=== PATIENT | female | born 1930 | race Caucasian/White ===

== ENCOUNTER 2016-06-24 10:08 | Emergency (ER) | payer OTHER ==
[~2016-06-24] VITALS: Ht 154.9 cm; Wt 70.3 kg
[2016-06-24 11:00] LABS: ABSOLUTE BASOPHIL COUNT 0 /CUMM (0.0-0.2); ABSOLUTE EOSINOPHIL COUNT 0.2 /CUMM (0.0-0.7); ABSOLUTE GRANULOCYTE CT 5.6 /CUMM (1.4-6.5); ABSOLUTE LYMPH COUNT 1.6 /CUMM (1.2-3.4); ABSOLUTE MONOCYTE COUNT 0.5 /CUMM (0.10-0.60); BASOPHIL % 0.6 % (0.0-2.0); EOSINOPHIL % 2.1 % (0-5); GRANULOCYTE % 71.1 % (42.2-75.2); HEMATOCRIT 43.7 % (37-47); MEAN CORPUSCULAR HGB 30.8 PG (27.0-31.0); MEAN CORPUSCULAR HGB CONC 33.9 G/DL (33.0-37.0); MEAN CORPUSCULAR VOLUME 90.7 FL (81.0-99.0); MEAN PLATELET VOLUME 8.4 FL (7.4-10.4); PLATELET COUNT 237 /CUMM (130-400); RBC DISTRIBUTION WIDTH 14.4 % (11.5-14.5); RED BLOOD CELL CT 4.82 /CUMM (4.20-5.40); WHITE BLOOD CELL COUNT 7.8 /CUMM (4.8-10.8)
--- NOTE | 2016-06-24 11:05 | ED SYNCOPE COMPLAINT ---
History of Present Illness General Chief Complaint: General Adult Stated Complaint: BIBA, DIZZINESS Source: patient, old records, EMS Exam Limitations: no limitations Vital Signs & Intake/Output Vital Signs & Intake/Output Vital Signs Date Time Temp Pulse Resp B/P B/P Pulse O2 O2 Flow FiO2 Mean Ox Delivery Rate 06/24 1459 97.8 89 16 139/91 97 Room Air 06/24 1213 77 16 148/81 100 Room Air 06/24 1042 98 Room Air 06/24 1013 97.4 72 20 122/62 96 Room Air Allergies Coded Allergies: NO KNOWN ALLERGIES (08/15/12) Reconcile Medications Aspirin (Aspirin*) 81 MG TAB.CHEW 1 TAB PO MoWeFr HEART HEALTH (Reported) Ferrous Sulfate 325 MG (65 MG IRON) TABLET 1 TAB PO DAILY SUPPLEMENT ( Reported) Triage Note: 86 YO FEMALE PATI FROM HOME. PT STATES SHE WOKE UP THIS AM AND FELT NORMAL, STATES SHE ATE BREAKFAST AND THEN HAD A SUDDEN ONSET OF DIZZINESS. STATES SHE IS NAUSOUS AT THIS TIME. PT STATES IT FEELS LIKE "THE ROOM I SPINNING" PT DENIES CHEST PAIN, SOB, LIGHTHEADED. PT ALERT & ORIENTED X4. Triage Nurses Notes Reviewed? yes Timing: single episode today Loss of Consciousness: no loss of consciousness Associated Symptoms: dizziness, nausea/vomiting HPI: 86-year-old female comes into emergency room for evaluation of dizziness lightheaded and feeling like she is going to pass out. Symptoms aren't shortly after breakfast this morning. She denies any chest pain or shortness of breath. Denies any vomiting but has some associated nausea. Denies any slurring of words. Patient came in by ambulance and lives by herself. Patient reports that she is still feeling dizzy. Denies any other associated symptoms. (YASH PARADA) Past History Travel History Traveled to [place] past 21 day No Medical History Any Pertinent Medical History? 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 No (YASH PARADA) Review of Systems Review of Systems Constitutional: Reports: no symptoms. EENTM: Reports: no symptoms. Respiratory: Reports: no symptoms. Cardiovascular: Reports: see HPI. GI: Reports: no symptoms. Genitourinary: Reports: no symptoms. Musculoskeletal: Reports: no symptoms. Skin: Reports: no symptoms. Neurological/Psychological: Reports: no symptoms. All Other Systems: Reviewed and Negative (YASH PARADA) Physical Exam Physical Exam General Appearance: well developed/nourished, alert, awake Head: atraumatic, normal appearance Eyes: Bilateral: normal appearance, PERRL, EOMI. Ears, Nose, Throat: normal pharynx, normal ENT inspection, hearing grossly normal Neck: normal inspection, full range of motion Respiratory: normal breath sounds, no respiratory distress Cardiovascular: regular rate/rhythm Back: normal inspection Extremities: normal inspection, normal range of motion Psychiatric: awake, alert, oriented x 3 Cranial Nerves: normal hearing, normal speech, PERRL Motor/Sensory: no motor/sensory deficits Skin: intact, normal color Core Measures ACS in differential dx? No CVA/TIA Diagnosis: No Severe Sepsis Present: No Septic Shock Present: No (YASH PARADA) Progress Differential Diagnosis: AMI, aortic dissection, aortic valve, drug induced syncope, hyperventilation, orthostatic syncope, other valvular disease, pacemaker malfunction, pericardial tamponade, pulmonary embolus, seizure, sick sinus syndrome, subarachnoid hem., TIA/CVA, vasodepressor syncope, ventricular tach/fib Diagnostic Imaging: Viewed by Me: Radiology Read. Discussed w/RAD: Radiology Read. Radiology Impression: SERVICE DATE: 06/24/16 EXAM TYPE: RAD - XRY- PORTABLE CHEST XRAY EXAMINATION: XR PORTABLE CHEST CLINICAL INFORMATION: Near syncope COMPARISON: None TECHNIQUE: Portable AP view of the chest was obtained. FINDINGS: Limited by patient rotation and 70 degree upright position. No large airspace consolidation. No pneumothorax. No significant pulmonary edema or pleural effusions. IMPRESSION: Limited exam without obvious acute abnormality. Recommend repeat upright PA and lateral radiograph when the patient is able. DICTATED BY: FABIANO WRIGHT MD DATE/TIME DICTATED:06/24/16 1234 MANAGER INTELLIGENCE:TOMY Initial ED EKG: normal intervals, normal sinus rhythm, rate (71), LBBB Repeat EKG: unchanged Comments: 06/24/2016 2:11:13 PM Upon reevaluating the patient her symptoms have resolved. I spoke with Dr. LOERA. The left bundle branch block is old. Patient will have a second troponin and EKG performed and will be discharged if she remains asymptomatic. (GALEN NOYOLA,YASH) Plan of Care: Orders Procedure Date/time Status Heart Healthy Diet 06/24 D Active EKG 06/24 1440 Active TROPONIN LEVEL 06/24 1400 Complete Telemetry/Field Evidence Technician 06/24 1051 Active TROPONIN LEVEL 06/24 1023 Complete COMPREHENSIVE METABOLIC PANEL 06/24 1023 Complete CBC WITHOUT DIFFERENTIAL 06/24 1023 Complete EKG 06/24 1023 Active Laboratory Tests 06/24/16 1444: Troponin I < 0.01 06/24/16 1038: Anion Gap 9, Estimated GFR 53 L, BUN/Creatinine Ratio 24.0, Glucose 88, Calcium 8.9, Total Bilirubin 0.6, AST 21, ALT 30, Alkaline Phosphatase 61, Troponin I < 0.01, Total Protein 6.6, Albumin 3.7, Globulin 2.9, Albumin/Globulin Ratio 1.3, CBC w Diff NO MAN DIFF REQ, RBC 4.82, MCV 90.7, MCH 30.8, RDW 14.4, MPV 8.4, Gran % 71.1, Lymphocytes % 20.4 L, Monocytes % 5.8, Eosinophils % 2.1, Basophils % 0.6, Absolute Granulocytes 5.6, Absolute Lymphocytes 1.6, Absolute Monocytes 0.5, Absolute Eosinophils 0.2, Absolute Basophils 0, PUBS MCHC 33.9 Departure Departure Disposition: HOME OR SELF CARE Condition: Stable Clinical Impression Primary Impression: Dizziness Referrals: LUZ MARIA DAVILA,Tirso LORENZO (PCP/Family) Additional Instructions: 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 Return if any concerns worsening symptoms. Return if any chest pain shortness of breath. Please go over all results of today's visit with your primary care doctor. Contact your primary care doctor to let them know you were here in the emergency room. There may be nonspecific findings which may not be related to your visit today here in the emergency room but may require further evaluation and chronic monitoring by your primary care doctor. If you had a laceration today the chance of foreign body always remains. You should follow-up with your primary care doctor for recheck in 3-5 days for a wound check. If you had an x-ray done there is a chance that a fracture could have been missed on initial read and you should follow-up with your primary care doctor for repeat x-rays if symptoms persist. If your blood pressure was elevated here in the emergency room please have rechecked by her primary care doctor within the next 48 hours by your primary care doctor. If you were prescribed a narcotic here in the emergency room or any type of controlled substances you're not allowed to drive while taking this medication or operate any type of heavy machinery. Narcotics can make you feel lightheaded dizziness nausea and can cause constipation. You may need to pickle maker a stool softener. Thank you for choosing [facility] emergency room. Please return to the emergency room immediately if you have any other concerns worsening of symptoms. Departure Forms: Customer Survey General Discharge Information Comments 06/24/2016 4:18:26 PM Patient clinically looks well. Patient is nontoxic-appearing. Patient is in no apparent distress. Patient resting comfortably in room. Patient was seen by Dr. Gaines. Patient's symptoms have completely resolved. (GALEN NOYOLA,YASH) PA/EVENT PLANNING INTERN Co-Sign Statement Statement: ED Attending supervision documentation- [x] I saw and evaluated the patient. I have also reviewed all the pertinent lab results and diagnostic results. I agree with the findings and the plan of care as documented in the PA's/EVENT PLANNING INTERN's documentation. [] I have reviewed the ED Record and agree with the PA's/EVENT PLANNING INTERN's documentation. [] Additions or exceptions (if any) to the PAs/EVENT PLANNING INTERN's note and plan are summarized below: [] (WERO DAVILA,SOFIA Weber)
[2016-06-24] MEDS ORDERED: FERROUS SULFAT325 M3 PO (12:06)
[2016-06-24] MEDS ORDERED: ASPIRIN81 M4 PO (12:06)
--- NOTE | 2016-06-24 12:40 | RADIOLOGY REPORT ---
EXAMINATION: XR PORTABLE CHEST CLINICAL INFORMATION: Near syncope COMPARISON: None TECHNIQUE: Portable AP view of the chest was obtained. FINDINGS: Limited by patient rotation and 70 degree upright position. No large airspace consolidation. No pneumothorax. No significant pulmonary edema or pleural effusions. IMPRESSION: Limited exam without obvious acute abnormality. Recommend repeat upright PA and lateral radiograph when the patient is able.
[2016-06-24 14:59] VITALS: BP 139/91
== END 2016-06-24 16:23 ==
LOC: ERH 10:08
PROVIDERS: Physician Assistant Medical
DX: R42 Dizziness and giddiness (principal)
CPT/HCPCS: 93005; 93010